=== PATIENT | female | born 1955 | race Hispanic/Latino ===

== ENCOUNTER 2020-08-06 12:33 | Outpatient (RCR) | payer OTHER | END 2020-08-10 | LOC: RESP 12:33 | DX: J84.9 Interstitial pulmonary disease, unspecified (principal) ==

== ENCOUNTER 2020-09-08 15:58 | Outpatient (RCR) | payer OTHER | END 2020-09-10 | LOC: RESP 15:58 | DX: J84.9 Interstitial pulmonary disease, unspecified (principal) | CPT/HCPCS: G0238 ×6; G0424 ×6 ==

== ENCOUNTER 2020-10-06 14:10 | Outpatient (RCR) | payer OTHER | END 2020-10-10 | LOC: RESP 14:10 | PROVIDERS: ATTEND Internal Medicine Pulmonary Disease | DX: J84.9 Interstitial pulmonary disease, unspecified (principal) | CPT/HCPCS: G0238 ×6; G0424 ×6 ==

== ENCOUNTER 2020-11-05 16:00 | Outpatient (RCR) | payer OTHER | END 2020-11-10 | LOC: RESP 16:00 | PROVIDERS: ATTEND Internal Medicine Pulmonary Disease | DX: J84.9 Interstitial pulmonary disease, unspecified (principal) | CPT/HCPCS: G0238 ×5; G0424 ×5 ==